=== PATIENT | male | born 1945 | race Two or more races ===

== ENCOUNTER 2018-12-09 13:10 | Emergency (ER) | payer MEDICARE, OTHER ==
[~2018-12-09] VITALS: Ht 160 cm; Wt 74.4 kg
[~2018-12-09 13:10] MED LIST: ASPIRIN EC81 MG ORAL; CELEBREX200 MG ORAL; COLACE100 MG ORAL; CYCLOBENZAPRINE10 MG ORAL; GABAPENTIN600 MG ORAL; IBUPROFEN800 MG ORAL; LOSARTAN POTASS50 MG ORAL; LYRICA25 MG ORAL; NORCO 5-325 TA1 EACH ORAL; PLAVIX75 MG ORAL; TOPROL XL50 MG ORAL; VALIUM5 MG ORAL
[2018-12-09 13:22] VITALS: BP 129/85
--- NOTE | 2018-12-09 13:35 | Emergency Room Report ---
History of Present Illness General Chief Complaint: Skin Rash/Abscess Source: Patient Present Illness HPI 73-year-old male patient presents the ER complaining of infection of left thumb. Reports present for the past 4 days. Denies acute injury or trauma. Denies loss of range of movement. Reports he is right-hand dominant. Denies drainage from site of infection. denies history of diabetes. Denies fever, chest pain or shortness of breath, vomiting. Denies other aggravating or relieving factors. Allergies: Coded Allergies: No Known Allergies (Verified , 08/25/09) Patient History Past Medical History: see triage record Reviewed Nursing Documentation: PMH: Agreed; PSxH: Agreed Nursing Documentation-PMH Past Medical History: No History, Except For Hx Cardiac Problems: Yes Hx Hypertension: Yes Hx Pacemaker: No Hx Asthma: No Hx COPD: No Hx Diabetes: No Hx Cancer: No Hx Gastrointestinal Problems: Yes Hx Dialysis: No Hx Neurological Problems: No Hx Cerebrovascular Accident: No Hx Seizures: No Review of Systems All Other Systems: negative except mentioned in HPI Physical Exam Vital Signs Date Time Temp Pulse Resp B/P (MAP) Pulse Ox O2 Delivery O2 Flow Rate FiO2 12/09/18 13:18 98.1 86 20 129/85 97 Room Air Sp02 EP Interpretation: reviewed, normal General Appearance: well appearing, no apparent distress, alert, GCS 15, non- toxic Head: normocephalic, atraumatic Eyes: bilateral eye normal inspection, bilateral eye PERRL ENT: hearing grossly normal, normal pharynx, no angioedema, normal voice, uvula midline, moist mucus membranes Neck: full range of motion Respiratory: lungs clear, normal breath sounds, no rhonchi, no respiratory distress, no accessory muscle use, no wheezing, speaking full sentences Cardiovascular #2: 2+ radial (R), 2+ radial (L) Gastrointestinal: non tender, soft, no mass, non-distended, no guarding, no rebound Musculoskeletal: back normal, digits/nails normal, gait/station normal, normal range of motion, non-tender, other - Neurovascularly intact, no Felon, cap refill<2seconds Psychiatric: mood/affect normal Skin: other - Obvious paronychia of the left thumb, tenderness to palpation, mild erythema and edema Procedures Incision and Drainage Incision and Drainage : Consent: Verbal Site: left thumb Blade Size: 11 I & D Procedure: betadine prep, sterile drapes applied, sterile dressing applied Wound Location: upper extremity - thumb Wound's Depth, Shape: superficial Wound Length (cm): 1 Wound Explored: contaminated Irrigated w/ Saline (ccs): 10 Anesthesia: other - topical LET Volume Anesthetic (ccs): 1 Splint Applied?: No Sling Applied?: No Patient Tolerated: Well Complications: None Medical Decision Making PA Attestation Dr. Joya is my supervising Physician whom patient management has been discussed with. Diagnostic Impression: Primary Impression: Paronychia ER Course Pt. presents to the ED c/o abscess on finger. Ddx considered but are not limited to rash, cellulitis, abscess, felon, paronychia, hangnail, herpetic leelee. Vital signs: are WNL, pt. is afebrile ED COURSE: Provide with pain medication. Local block block of finger performed with topical lidocaine. I&D of paronychia performed. Pus expressed from finger. Patient finger no longer swollen, patient reports decrease in pain symptoms. Sterile dressing and Bacitracin applied to wound following procedure. Patient instructed to keep wound clean and dry and to follow-up with primary care provider in 2 days for wound check. Keep clean and dry. Allow to drain. ER precautions given. Discuss care with Dr. Joya, does not require treatment with oral abx at this time. No hx of diabetes or taking immunotherapy currently. Low suspicion for MRSA, does not require antibiotics to cover for MRSA. DISCHARGE At this time pt. is stable for d/c to home. Patient resting comfortably, in no acute distress, nontoxic appearing, laughing and smiling. Will provide printed patient care instructions and any necessary prescriptions. Care plan and follow up instructions have been discussed with the patient prior to discharge. Patient instructed to follow-up with primary care provider in 2 - 3 days for wound recheck. Patient questions asked and answered. Patient reports understanding and agreement to treatment plan. ER precautions given. Patient instructed to return to ER immediately for any new or worsening of symptoms including but not limited to fever, worsening of pain symptoms, worsening of erythema, red streaking. - Please note that this Emergency Department Report was dictated using [employer] engineer technology software, occasionally this can lead to erroneous entry secondary to interpretation by the dictation equipment. Last Vital Signs Date Time Temp Pulse Resp B/P (MAP) Pulse Ox O2 Delivery O2 Flow Rate FiO2 12/09/18 13:22 98.1 80 20 129/85 97 Room Air Status: improved Disposition: HOME, SELF-CARE Condition: Stable Scripts Acetaminophen With Codeine (T#3) (TYLENOL #3 TAB*) Y Tab 1 TAB ORAL Q6HR PRN for For Pain, #8 TAB Prov: Héctor Hart 12/09/18 Ibuprofen* (MOTRIN*) 600 Mg Tablet 600 MG ORAL Q8H PRN for For Pain, #30 TAB 0 Refills Prov: Héctor Hart 12/09/18 Bacitracin/Polymyxin B Sulfate (BACITRACIN-POLYMYXIN OINTMENT) 28.35 Gm Oint...g. 1 APPLIC TP BID, #28 GM Prov: Héctor Hart 12/09/18 Patient Instructions: Paronychia, [id number] Additional Instructions: Patient instructed to follow-up with primary care provider in 2-3 days for wound check Take medications as directed. Medication may cause drowsiness, do not take prior to drinking, driving, operating heavy machinery. Following completion of Tylenol #3, take Motrin for pain symptoms. Keep wound clean and dry. Advised on warm soaks. Patient questions asked and answered. ER precautions given, patient instructed to return to ER immediately for any new or worsening of symptoms quitting but not limited to fever, vomiting, worsening of redness or swelling, worsening of pain. Héctor Hart Dec 09, 2018 13:35
[2018-12-09] MEDS ORDERED: LET 3ml Soln TOPIC ONE (13:45)
[2018-12-09] MEDS ORDERED: Bacitracin Oint UD TOPIC ONE (13:45)
[2018-12-09] MEDS ORDERED: CEPHALEXIN500 MG ORAL (14:03)
[2018-12-09] MEDS ORDERED: ACETAMINOPHEN-1 EAC1 ORAL (14:03)
[2018-12-09] MEDS ORDERED: IBUPROFEN600 MG ORAL (14:03)
[2018-12-09] MEDS ORDERED: BACITRACIN-P28.35 GM TP (14:03)
[2018-12-09 14:06] VITALS: BP 129/85
--- NOTE | 2018-12-09 14:07 | NUR ---
ER DISCHARGE NOTE:pt. had I&D of abscess done and dry dressing applied with bacitricin Patient is cleared to be discharged per ERMD, pt is aox4, on room air, with stable vital signs. pt was given dc and prescription instructions, pt was able to verbalize understanding, pt is able to ambulate with steady gait. pt took all belongings.
== END 2018-12-09 14:06 | disposition home or self-care (01) ==
LOC: EMR 13:55
DX: L03.012 Cellulitis of left finger (principal); I10 Essential (primary) hypertension
CPT/HCPCS: 99283